=== PATIENT | female | born 1930 | race Caucasian/White ===

== ENCOUNTER 2016-10-09 06:14 | Inpatient (IN) | payer OTHER, MEDICAID ==
--- NOTE | 2016-10-09 07:04 | EDPHY ---
H & P Stated Complaint: dizzy/fall Time Seen by Provider: 10/09/16 06:16 HPI/ROS: Chief complaint: Fall, right shoulder pain HPI: 86-year-old female states she got out of bed at 5 o'clock this morning. She stood up beside her bed and felt dizzy. She states that she feels this way nearly every morning. She then tried to take a step forward and lost her balance and fell backwards flat onto her back. She did hit her head but denies loss of consciousness. She is complaining of pain in her right shoulder. No numbness or tingling. She does not take any blood thinning medications. No chest pain. No abdominal pain. No pain in her legs or hips. Patient does wear a fentanyl patch. EMS took this off during transport. ROS: 10 point Review of Systems is negative except as noted in the HPI. Past medical history: Chronic back pain status post spine and neck surgery, on fentanyl patch Depression Medications: Flexeril Trazodone Cymbalta Fentanyl Ranitidine Allergies: No known drug allergies Physical exam: Gen: Awake, Alert, uncomfortable appearing HEENT: Atraumatic Nose: no rhinorrhea Eyes: PERRLA, EOMI Mouth: Moist mucosa Neck: Supple, no JVD Chest: nontender, lungs clear to auscultation Heart: S1, S2 normal, no murmur Abd: Soft, non-tender, no guarding Back: no CVA tenderness, no midline tenderness Ext: no edema, she has tenderness over the right humeral head. There is swelling. Decreased range of motion secondary to pain. Sensations intact in the radial, median, and ulnar nerve distribution. She has 2+ capillary refill. Left arm is atraumatic. She has no lower extremity tenderness. She has full range of motion of bilateral lower extremities without pain. Skin: no rash Neuro: CN II-XII intact, Sensation grossly intact, Strength 5/5 in bilateral upper and lower extremities - Personal History Current Tetanus/Diphtheria Vaccine: Unsure Current Tetanus Diphtheria and Acellular Pertussis (TDAP): Unsure - Medical/Surgical History Hx Asthma: No Hx Chronic Respiratory Disease: No Hx Diabetes: No Hx Cardiac Disease: Yes Hx Renal Disease: No Hx Cirrhosis: No Hx Alcoholism: No Hx HIV/AIDS: No Hx Splenectomy or Spleen Trauma: No Other PMH: Stent, HTN, Skin cancer, Pacemaker, colectomy, Back surgery, Chronic back pain - Social History Smoking Status: Never smoked Constitutional: Initial Vital Signs Temperature (C) 36.7 C 10/09/16 06:38 Heart Rate 76 10/09/16 06:38 Respiratory Rate 15 10/09/16 06:38 Blood Pressure 164/96 H 10/09/16 06:38 O2 Sat (%) 95 10/09/16 06:38 O2 Delivery Mode Room Air Allergies/Adverse Reactions: No Known Allergies Allergy (Verified 10/09/16 06:44) Home Medications: Medication Instructions Recorded Amoxicillin 500 mg PO 10/09/16 Bisoprolol Fumarate [Zebeta (*)] 10/09/16 CYCLOBENZAPRINE HCL [Flexeril] 10/09/16 DULoxetine [Cymbalta] 10/09/16 Ranitidine HCl 150 mg PO 10/09/16 fentanYL [Fentanyl] 1 each TD 10/09/16 traZODone [traZODONE 50MG (*)] 10/09/16 Medical Decision Making - Diagnostics Imaging: CT head: Negative for acute injury per Dr. Jose Jaramillo. Right shoulder x-ray: There is a right humeral head fracture with minimal displacement. ED Course/Re-evaluation: 86-year-old female status post mechanical fall with a right shoulder fracture. Patient normally walks with a cane. She is very frail. She lives independently. I do not believe she is safe to go home at this time. I have discussed with Dr. Springer, hospitalist. She will admit to her service for further care. I have also discussed with orthopedist who will happily consult on the patient in the hospital. Patient has been placed in a shoulder immobilizer. There are no other obvious signs of injuries. Blood work is still pending which hospitalist is happy to follow up. - Data Points Laboratory Results: Laboratory Results 10/09/16 07:00 10/09/16 10/09/16 07:00 07:00 WBC 6.86 10^3/uL 10^3/uL (3.80-9.50) RBC 4.16 10^6/uL L 10^6/uL (4.18-5.33) Hgb 13.0 g/dL g/dL (12.6-16.3) Hct 38.2 % % (38.0-47.0) MCV 91.8 fL fL (81.5-99.8) MCH 31.3 pg pg (27.9-34.1) MCHC 34.0 g/dL g/dL (32.4-36.7) RDW 12.6 % % (11.5-15.2) Plt Count 161 10^3/uL 10^3/uL (150-400) MPV 10.2 fL fL (8.7-11.7) Neut % (Auto) 57.3 % % (39.3-74.2) Lymph % (Auto) 25.2 % % (15.0-45.0) Cole % (Auto) 14.3 % H % (4.5-13.0) Eos % (Auto) 2.0 % % (0.6-7.6) Baso % (Auto) 0.9 % % (0.3-1.7) Nucleat RBC Rel Count 0.0 % % (0.0-0.2) Absolute Neuts (auto) 3.93 10^3/uL 10^3/uL (1.70-6.50) Absolute Lymphs (auto) 1.73 10^3/uL 10^3/uL (1.00-3.00) Absolute Monos (auto) 0.98 10^3/uL H 10^3/uL (0.30-0.80) Absolute Eos (auto) 0.14 10^3/uL 10^3/uL (0.03-0.40) Absolute Basos (auto) 0.06 10^3/uL 10^3/uL (0.02-0.10) Absolute Nucleated RBC 0.00 10^3/uL 10^3/uL (0-0.01) Immature Gran % 0.3 % % (0.0-1.1) Immature Gran # 0.02 10^3/uL 10^3/uL (0.00-0.10) Sodium Pending Potassium Pending Chloride Pending Carbon Dioxide Pending Anion Gap Pending BUN Pending Creatinine Pending Estimated GFR Pending Glucose Pending Calcium Pending Departure - Departure Disposition: [facility] Inpatient Acute Clinical Impression: Humerus head fracture Condition: Fair Referrals: Patient,NotPresent [Primary Care Provider] - As per Instructions
[2016-10-09 07:06] LABS: % IMMATURE GRANULYOCYTES 0.3 % (0.0-1.1); ABSOLUTE IMMATURE GRANULOCYTES 0.02 10^3/uL (0.00-0.10); ADD DIFF? NO; ADD MORPH? NO; ADD SCAN? NO; ATYPICAL LYMPHOCYTE FLAG 10 (0-99); FRAGMENT RBC FLAG 0 (0-99); HEMATOCRIT 38.2 % (38.0-47.0); LEFT SHIFT FLG 0 (0-99); LIPEMIA HEMOLYSIS FLAG 90 (0-99); MEAN CELL HEMOGLOBIN 31.3 pg (27.9-34.1); MEAN CELL VOLUME 91.8 fL (81.5-99.8); MEAN PLATELET VOLUME 10.2 fL (8.7-11.7); PLATELET CLUMPS FLAG 0 (0-99); PLATELET COUNT 161 10^3/uL (150-400); RED BLOOD CELL COUNT 4.16 10^6/uL (4.18-5.33); RED CELL DISTRIBUTION WIDTH 12.6 % (11.5-15.2)
[2016-10-09 07:30] LABS: ANION GAP 8 mEq/L (8-16); CALCIUM 9.6 mg/dL (8.5-10.4); CARBON DIOXIDE 28 mEq/l (22-31); CHLORIDE 104 mEq/L (97-110); CREATININE 1.1 mg/dL (0.6-1.0); GLOMERULAR FILTRATION RATE 47; GLUCOSE 95 mg/dL (70-100); SODIUM 140 mEq/L (134-144)
[2016-10-09] MEDS ORDERED: ONDANSETRON 4 MG/2 ML VIAL IVP PRN (07:39)
[2016-10-09] MEDS ORDERED: ONDANSETRON DISINTEGRATING 4 MG TAB PO PRN (07:39)
--- NOTE | 2016-10-09 07:58 | PDGENHP ---
History and Physical - Chief Complaint fall - History of Present Illness Patient is an 86/F with history of CAD, PPM, reports multiple TIA, HTN, chronic back pain who presents to the ED after a fall with significant R shoulder pain. Patient states she had woken up at about 530 this morning, got out of bed and felt dizzy upon standing. She tried to take a few steps forward when she felt herself falling back. She reached out her R arm to try to catch herself, however , could not stop herself from falling and landed on her R arm. She also reports hitting her head on the ground, but not directly. She denies LOC, but was in significant amount of acute pain in her R shoulder. She denies any associated focal weakness, chest pain, palpitations, shortness of breath. Of note, patient was recently initiated on antibiotics for a UTI 2 days ago. She states she was feeling lower abdominal cramping and fullness, was diagnosed with a UTI and started the antibiotics (unable to remember name). She reports her urinary symptoms seemed to have improved. She denies any fever, chills. On arrival to the ED, patient was afebrile and hemodynamically stable. CBC was wnl, BMP showed mild elevation in BUn/Cr. X-ray of R shoulder revealed acute humeral head fracture. CT head was negative for any acute intracranial abnormality. History Information - Allergies/Home Medication List Allergies/Adverse Reactions: No Known Allergies Allergy (Verified 10/09/16 06:44) Home Medications: Amoxicillin 500 mg PO 10/09/16 [Last Taken Unknown] Bisoprolol Fumarate [Zebeta (*)] 10/09/16 [Last Taken Unknown] CYCLOBENZAPRINE HCL [Flexeril] 10/09/16 [Last Taken Unknown] DULoxetine [Cymbalta] 10/09/16 [Last Taken Unknown] Ranitidine HCl 150 mg PO 10/09/16 [Last Taken Unknown] fentanYL [Fentanyl] 1 each TD 10/09/16 [Last Taken Unknown] traZODone [traZODONE 50MG (*)] 10/09/16 [Last Taken Unknown] I have personally reviewed and updated: family history, medical history, social history, surgical history - Past Medical History Additional medical history: CAD. PPM. TIAs. chronic back pain. bowel resection for unclear reason - Surgical History Additional surgical history: tonsillectomy. breast biopsies. hysterectomy. bowel resection with colostomy. multiple back surgeries. Mohs procedure on nose - Family History Positive for: non-pertinent - Social History Smoking Status: Former smoker (quit smoking 30 yrs ago, smoked x 30 years) Alcohol Use: None Drug Use: None Additional social history: Patient lives with her son, walks independently. Review of Systems ROS: 10pt was reviewed & negative except for what was stated in HPI & below Physical Exam Temp Pulse Resp BP Pulse Ox 36.7 C 76 15 164/96 H 95 10/09/16 06:51 10/09/16 06:51 10/09/16 06:51 10/09/16 06:51 10/09/16 06:51 Constitutional: no apparent distress, appears nourished, not in pain Eyes: PERRL, anicteric sclera, EOMI Ears, Nose, Mouth, Throat: hearing normal, ears appear normal, no oral mucosal ulcers, dry mucous membranes Cardiovascular: regular rate and rhythym, no murmur, rub, or gallop, pulses symmetric bilaterally, No JVD, No edema Peripheral Pulses: 2+: dorsalis-pedis (R), dorsalis-pedis (L) Respiratory: no respiratory distress, no rales or rhonchi, clear to auscultation Gastrointestinal: normoactive bowel sounds, soft, non-tender abdomen, no palpable masses, other (colostomy in place in LLQ, draining normal stool), No tenderness, No guarding, No rebound, No distension Genitourinary: no bladder fullness, no bladder tenderness Skin: warm, normal color, no rashes or abrasions, no fluctuance, no induration, No mottled Musculoskeletal: other (R shoulder in sling immobilizer, with significant tenderness; neurovascularly intact) Neurologic: AAOx3, sensation intact bilaterally, CN II-XII Intact, No weakness, No numbness, No facial droop Psychiatric: interacting appropriately, not anxious, not encephalopathic, thought process linear Lab Data & Imaging Review 10/09/16 07:00 10/09/16 07:00 WBC 6.86 10^3/uL (3.80-9.50) 10/09/16 07:00 RBC 4.16 10^6/uL (4.18-5.33) L 10/09/16 07:00 Hgb 13.0 g/dL (12.6-16.3) 10/09/16 07:00 Hct 38.2 % (38.0-47.0) 10/09/16 07:00 MCV 91.8 fL (81.5-99.8) 10/09/16 07:00 MCH 31.3 pg (27.9-34.1) 10/09/16 07:00 MCHC 34.0 g/dL (32.4-36.7) 10/09/16 07:00 RDW 12.6 % (11.5-15.2) 10/09/16 07:00 Plt Count 161 10^3/uL (150-400) 10/09/16 07:00 MPV 10.2 fL (8.7-11.7) 10/09/16 07:00 Neut % (Auto) 57.3 % (39.3-74.2) 10/09/16 07:00 Lymph % (Auto) 25.2 % (15.0-45.0) 10/09/16 07:00 [place] % (Auto) 14.3 % (4.5-13.0) H 10/09/16 07:00 Eos % (Auto) 2.0 % (0.6-7.6) 10/09/16 07:00 Baso % (Auto) 0.9 % (0.3-1.7) 10/09/16 07:00 Nucleat RBC Rel Count 0.0 % (0.0-0.2) 10/09/16 07:00 Absolute Neuts (auto) 3.93 10^3/uL (1.70-6.50) 10/09/16 07:00 Absolute Lymphs (auto) 1.73 10^3/uL (1.00-3.00) 10/09/16 07:00 Absolute Monos (auto) 0.98 10^3/uL (0.30-0.80) H 10/09/16 07:00 Absolute Eos (auto) 0.14 10^3/uL (0.03-0.40) 10/09/16 07:00 Absolute Basos (auto) 0.06 10^3/uL (0.02-0.10) 10/09/16 07:00 Absolute Nucleated RBC 0.00 10^3/uL (0-0.01) 10/09/16 07:00 Immature Gran % 0.3 % (0.0-1.1) 10/09/16 07:00 Immature Gran # 0.02 10^3/uL (0.00-0.10) 10/09/16 07:00 Sodium 140 mEq/L (134-144) 10/09/16 07:00 Potassium 4.0 mEq/L (3.5-5.2) 10/09/16 07:00 Chloride 104 mEq/L (97-110) 10/09/16 07:00 Carbon Dioxide 28 mEq/l (22-31) 10/09/16 07:00 Anion Gap 8 mEq/L (8-16) 10/09/16 07:00 BUN 24 mg/dL (7-23) H 10/09/16 07:00 Creatinine 1.1 mg/dL (0.6-1.0) H 10/09/16 07:00 Estimated GFR 47 10/09/16 07:00 Glucose 95 mg/dL (70-100) 10/09/16 07:00 Calcium 9.6 mg/dL (8.5-10.4) 10/09/16 07:00 Visualized and Interpreted imaging results: Yes Interpretation: CT head: no acute abnormalities. X-ray shoulder: acute R humeral head fracture Assessment & Plan Assessment: Patient is an 86/F with CAD, h/o TIA, PPM in place who presents to the ED after a mechanical fall. ED w/u reveals mild dehydration and acute R humeral head fracture. Plan: # acute R humerus fracture Placed in sling, ortho called by ED, evaluation pending. Will cont pain control and f/u ortho recommendations regarding need for surgical intervention. # fall Sounds as if patient was orthostatic upon standing from lying position and patient also appears dehydrated on exam and based on labs. Will check TTE, interrogate PPM, place on IV fluid hydration and obtain PT consult. Low suspicion for ACS, but will also check EKG and troponin. # recently diagnosed UTI Once antibiotic is confirmed can restart the antibiotic. Will also check UA. No clinical signs of infection presently. # dispo: admit to inpatient service for > 2 MN stay # gen: NPO DVT ppx: SCDs DNR, as expressed by patient on admission
--- NOTE | 2016-10-09 08:25 | CPEKG ---
Heart Rate: 76 RR Interval: 789 P-R Interval: 176 QRSD Interval: 76 QT Interval: 416 QTC Interval: 468 P [employer]: 46 QRS [employer]: 34 T Wave [employer]: 56 EKG Severity - NORMAL ECG - EKG Impression: SINUS RHYTHM Electronically Signed By: Dejan Tong 10-Oct-2016 14:24:03
[2016-10-09] MEDS ORDERED: fentaNYL 100 MCG/2 ML INJ ONE (09:44)
[2016-10-09] MEDS ORDERED: fentaNYL 100 MCG/2 ML INJ IVP ONE (09:53)
[2016-10-09] MEDS: fentaNYL 50 MCG PATCH TD SCH (11:12)
--- NOTE | 2016-10-09 11:37 | ECHO ---
[id number] + + [address] : : [place] [address] : : [phone] + + Adult Echocardiographic Report + -----+ :Name: GAURANG ARENASAdama Date: 10/09/2016 10:43 AM : : Hospital Admission Number: [id number] Location : 6: :: 1930 Gender: Female Height: 59 in : :Age: 86 yrs Race: WH Weight: 89 lb : :Reason For Study: Eval LV Fx : : BSA: 1.3 meters2 : :History: Fall, Fractured Shoulder, Dizziness, Pacemaker : + -----+ MMode/2D Measurements \T\ Calculations IVSd: 0.86 cm LVIDd: 3.6 cm FS: 46.0 % MV Diam: 3.1 cm LVPWd: 0.94 cm LVIDs: 1.9 cm EDV(Teich): 54.1 ml ESV(Teich): 11.8 ml EF(Teich): 78.2 % Ao root diam: 2.8 cm LVOT diam: 1.9 cm ACS: 1.4 cm LVOT area: 2.8 cm2 LA dimension: 3.3 cm Normal Measurement Values: + + :LVIDd (3.5-5.7cm) IVSd (0.6-1.1cm) LVPWd (0.6-1.1cm) Aortic Root (2.0-3.7cm)Left Atrium (1.5-4.0cm): :LV Vol(d) (76-115ml) LV Vol(s) (29-48ml) Ejec Fraction (50-65%)PV Romaine (0.6- 1.2m/s) TV Romaine (0.4-1.0m/s) : :MV E Romaine (0.8-1.0m/s)MV A Romaine (0.3-1.0m/s)LVOT Romaine (0.7-1.2m/s) Asc Ao Romaine ( 0.9-1.8m/s) : + + Doppler Measurements \T\ Calculations MV E max romaine: MV V2 max: Ao V2 max: AI max romaine: 77.5 cm/sec 116.0 cm/sec 141.0 cm/sec 423.0 cm/sec MV A max romaine: MV max P.4 mmHg Ao max PG: AI max P.0 cm/sec MV V2 mean: 8.0 mmHg 71.6 mmHg MV E/A: 0.66 75.5 cm/sec Ao mean PG: AI dec slope: MV mean P.0 mmHg 241.0 cm/sec2 3.0 mmHg Ao V2 mean: AI P1/2t: MV V2 VTI: 27.3 cm 98.5 cm/sec 514.1 msec MV area (1 diam): Ao V2 VTI: 7.5 cm2 32.1 cm CATHRYN(I,D): MVA(VTI): 24.6 cm2 20.9 cm2 MV Flow area CATHRYN(V,D): (1diam): 7.5 cm2 12.4 cm2 LV V1 max: MR max romaine: MR(RF 1 diam): SV(MV 1 diam): 619.0 cm/sec 604.0 cm/sec 8.8 % 206.1 ml LV V1 max PG: MR max PG: SI(MV 1 diam): 153.3 mmHg 145.9 mmHg 157.6 ml/m2 LV V1 mean PG: SV(LVOT): 672.0 ml 113.0 mmHg LV V1 mean: 509.0 cm/sec LV V1 VTI: 237.0 cm TR max romaine: RF(MV,Ao)(1 diam): 286.0 cm/sec 0.04 TR max PG: RF(MV,LVOT)(1diam): 32.7 mmHg -2.3 RAP systole: 5.0 mmHg RVSP(TR): 37.7 mmHg Left Ventricle The left ventricle is normal in size. There is normal left ventricular wall thickness. The left ventricular ejection fraction is normal. There is Doppler evidence for diastolic dysfunction. Ejection Fraction = 78%. The left ventricular wall motion is normal. Right Ventricle There is a pacemaker lead in the right ventricle. The right ventricle is normal in size and function. Atria The left atrial size is normal. Right atrial size is normal. Mitral Valve The mitral valve is normal. There is mild to moderate mitral regurgitation. Tricuspid Valve There is mild tricuspid regurgitation. Right ventricular systolic pressure is normal. Aortic Valve Mild Aortic Valve Calcification. The aortic valve is trileaflet. There is no aortic stenosis. Moderate aortic regurgitation. Pulmonic Valve The pulmonic valve is normal in structure and function. There is no pulmonic valvular regurgitation. Great Vessels The aortic root is normal size. Pericardium/Pleural There is no pericardial effusion. Conclusion A complete two-dimensional transthoracic echocardiogram was performed (2D, M-mode, Doppler and color flow Doppler). (1) Left ventricular systolic ejection fraction was normal (>75%) - normal wall motion (2) No left ventricular hypertrophy (3) Diastolic dysfunction was present (4) Normal right ventricular size and function - pacer lead to the right ventricular chamber (5) Normal atrial dimensions (6) Mild to moderate mitral regurgitation (7) Trileaflet aortic valve with mild sclerosis, no stenosis, and moderate insufficiency (8) Mild tricuspid regurgitation - RVSP was estimated to be 35-40 mm Hg (9) Poor visualization of the pulmonic valve without appreciable insufficiency noted (by doppler) (10) No comparison echocardiograms Final Reading Physician: Hanna Morales signed on 10/09/2016 11:35 AM Ordering Physician: Chen Springer Performed By: Tho Ceja, RDCS
[2016-10-09] MEDS: NS 1,000 ML IV SCH (14:06)
[2016-10-09] MEDS: AMOX/CLAVULANATE 500/125 MG TAB PO SCH ×2 (14:06→20:23)
[2016-10-09 16:57] LABS: COLOR YELLOW; LEUKOCYTE ESTERASE,URINE NEGATIVE (NEGATIVE); NITRITE,URINE NEGATIVE (NEGATIVE)
[2016-10-09] MEDS: CYCLOBENZAPRINE 10 MG TAB PO SCH (20:22)
[2016-10-09] MEDS: oxyCODONE IR 5 MG TAB PO PRN (20:22)
[2016-10-09] MEDS: BISOPROLOL FUMARATE 5 MG TAB PO SCH (20:22)
[2016-10-09] MEDS: DOCUSATE SODIUM 100 MG CAP PO SCH (20:22)
[2016-10-09] MEDS: traZODone 50 MG TAB PO SCH (20:22)
[2016-10-09] MEDS: ATORVASTATIN CALCIUM 20 MG TAB PO SCH (20:23)
--- NOTE | 2016-10-09 20:39 | PDCONSULT ---
[employer] Waiter Note: paxton is a pleasant 86 yo f, biba today on 10/09/16, patient states she awoke this morning around 5, got up out of bed, took a few steps, and felt dizzy ( which she reports happens to her fairly regularly) and she wanted to sit down, but she was not close to a bed or chair and so she fell to the ground, patient tried to catch her self, but ended up landing on her right arm and falling down and hitting her head, patient reports she did not loose consciousness and remembers everything. patient states pain was immediate 10+/10, sharp stabbing non-radiating pain. immediately after her fall patients son found her and called the ambulance as he was afraid to pick her up. patient was then brought to [place] [facility] ED where it was found she had a humerus fracture. 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, multiple uti's psh: partial bowel resection w/ colostomy, tonsilectomy, angle-bso, cardiac stents , pace maker placement, bladder mesh removal x2, cervical spinal fusion, MOHs skin cancer removal, breast biopsies x2 allergies: nkda home medications Amox Tr/K Clav (Augmentin) [Augmentin 500/125 MG TAB (*)] 1 each PO BID [Last Taken 10/08/16] Aspirin [Aspirin 81mg (*)] 81 mg PO DAILY 10/09/16 [Last Taken 10/08/16] Atorvastatin Calcium [Lipitor 20 mg (*)] 20 mg PO HS 10/09/16 [Last Taken ] Bisoprolol Fumarate [Zebeta (*)] 2.5 mg PO HS 10/09/16 [Last Taken 10/08/16] Calcium Carbonate [Oyster Shell Calcium 500 mg (*)] 500 mg PO DAILY 10/09/16 [ Last Taken 10/08/16] Cyclobenzaprine [Flexeril 10 MG (*)] 10 mg PO HS 10/09/16 [Last Taken Unknown] DULoxetine [Cymbalta 30 MG (*)] 30 mg PO DAILY 10/09/16 [Last Taken 10/08/16] Dexlansoprazole [Dexilant] 30 mg PO DAILYAC 10/09/16 [Last Taken 10/06/16] Docusate Sodium [Colace 100 MG (*)] 100 mg PO BID 10/09/16 [Last Taken 10/08/16] Folic Acid [Folic Acid 1 MG (*)] 1 mg PO DAILY 10/09/16 [Last Taken 10/08/16] Herbals/Supplements -Info Only 1 ea PO DAILY 10/09/16 [Last Taken Unknown] Multivitamins W-Minerals [Thera M Plus Tablet (*)] 1 each PO DAILY 10/09/16 [ Last Taken 10/08/16] Ranitidine HCl 150 mg PO BID 10/09/16 [Last Taken Unknown] fentaNYL [Duragesic 50 MCG Patch (*)] 50 mcg TD Q72H 10/09/16 [Last Taken ] traZODone [traZODONE 50MG (*)] 50 mg PO HS 10/09/16 [Last Taken 10/08/16] family history: non pertinent social history: former smoker (smoked for 30 years, quit 30 years ago) cbc and chem panel for 10/09/16 reviewed WBC 6.86 10^3/uL (3.80-9.50) 10/09/16 07:00 RBC 4.16 10^6/uL (4.18-5.33) L 10/09/16 07:00 Hgb 13.0 g/dL (12.6-16.3) 10/09/16 07:00 Hct 38.2 % (38.0-47.0) 10/09/16 07:00 MCV 91.8 fL (81.5-99.8) 10/09/16 07:00 MCH 31.3 pg (27.9-34.1) 10/09/16 07:00 MCHC 34.0 g/dL (32.4-36.7) 10/09/16 07:00 RDW 12.6 % (11.5-15.2) 10/09/16 07:00 Plt Count 161 10^3/uL (150-400) 10/09/16 07:00 MPV 10.2 fL (8.7-11.7) 10/09/16 07:00 Neut % (Auto) 57.3 % (39.3-74.2) 10/09/16 07:00 Lymph % (Auto) 25.2 % (15.0-45.0) 10/09/16 07:00 [place] % (Auto) 14.3 % (4.5-13.0) H 10/09/16 07:00 Eos % (Auto) 2.0 % (0.6-7.6) 10/09/16 07:00 Baso % (Auto) 0.9 % (0.3-1.7) 10/09/16 07:00 Nucleat RBC Rel Count 0.0 % (0.0-0.2) 10/09/16 07:00 Absolute Neuts (auto) 3.93 10^3/uL (1.70-6.50) 10/09/16 07:00 Absolute Lymphs (auto) 1.73 10^3/uL (1.00-3.00) 10/09/16 07:00 Absolute Monos (auto) 0.98 10^3/uL (0.30-0.80) H 10/09/16 07:00 Absolute Eos (auto) 0.14 10^3/uL (0.03-0.40) 10/09/16 07:00 Absolute Basos (auto) 0.06 10^3/uL (0.02-0.10) 10/09/16 07:00 Absolute Nucleated RBC 0.00 10^3/uL (0-0.01) 10/09/16 07:00 Immature Gran % 0.3 % (0.0-1.1) 10/09/16 07:00 Immature Gran # 0.02 10^3/uL (0.00-0.10) 10/09/16 07:00 Sodium 140 mEq/L (134-144) 10/09/16 07:00 Potassium 4.0 mEq/L (3.5-5.2) 10/09/16 07:00 Chloride 104 mEq/L (97-110) 10/09/16 07:00 Carbon Dioxide 28 mEq/l (22-31) 10/09/16 07:00 Anion Gap 8 mEq/L (8-16) 10/09/16 07:00 BUN 24 mg/dL (7-23) H 10/09/16 07:00 Creatinine 1.1 mg/dL (0.6-1.0) H 10/09/16 07:00 Estimated GFR 47 10/09/16 07:00 Glucose 95 mg/dL (70-100) 10/09/16 07:00 Calcium 9.6 mg/dL (8.5-10.4) 10/09/16 07:00 Troponin I 0.019 ng/mL (0-0.034) 10/09/16 07:00 Urine Color YELLOW 10/09/16 16:27 Urine Appearance HAZY 10/09/16 16:27 Urine pH 7.0 (5.0-7.5) 10/09/16 16:27 Ur Specific Bonnie 1.014 (1.002-1.030) 10/09/16 16:27 Urine Protein NEGATIVE (NEGATIVE) 10/09/16 16:27 Urine Ketones NEGATIVE (NEGATIVE) 10/09/16 16:27 Urine Blood NEGATIVE (NEGATIVE) 10/09/16 16:27 Urine Nitrate NEGATIVE (NEGATIVE) 10/09/16 16:27 Urine Bilirubin NEGATIVE (NEGATIVE) 10/09/16 16:27 Urine Urobilinogen NEGATIVE EU (0.2-1.0) 10/09/16 16:27 Ur Leukocyte Esterase NEGATIVE (NEGATIVE) 10/09/16 16:27 Urine Glucose NEGATIVE (NEGATIVE) 10/09/16 16:27 PE: pleasent 86 yo female appearing stated age, in no acute distress RUE: right arm in sling, no erythema/edema/ecchymosis, exquisitely ttp over humeral head and proximal humeral shaft, rom: passive rom of elbow 80-110 limited 2ndry to pain, full wrist active/passive, full digital active/passive, radial/ulnar 2+, nvid w/ brisk cap refill Visualized and Interpreted imaging results: Yes Interpretation: CT head: no acute abnormalities. X-ray shoulder: acute R humeral head fracture a/p 86/F with CAD, h/o TIA, PPM, presenting to ED s/p fall w/ right humerus fracture -RUE: nnon-weight bearing x6 weeks, continue sling use for 6 weeks, no surgical intervention at this time as patient is high risk surgical candidate -pain management per primary team, consider adding in tylenol 1000mg q8h for additional pain relief -proph: incentive spirometry, cpm's b/l, patient encouraged to maintain her wrist/digital rom even while in sling -may dc npo order as patient will not be getting surgery today -no further orthopedic intervention at this time, patient should follow up with alejandra hughes pa-c in 2 weeks from date of injury -all of this was discussed with patients son ilia who is power of radiation control technician and he agreed with the plan put forth case discussed w/ dr. balderrama
[2016-10-09] MEDS ORDERED: NON-FORMULARY NEW DRUG (Ranitidine Hcl [Ranitidine Hcl] 150 MG) PO SCH (21:00)
[2016-10-10] MEDS: NS 1,000 ML IV SCH (03:31)
[2016-10-10] MEDS: oxyCODONE IR 5 MG TAB PO PRN ×4 (03:33→19:42)
[2016-10-10] MEDS ORDERED: DEXLANSOPRAZOLE 30 MG PO SCH (07:30)
[2016-10-10] MEDS: ACETAMINOPHEN 500 MG TAB PO PRN ×3 (08:31→20:54)
[2016-10-10] MEDS: AMOX/CLAVULANATE 500/125 MG TAB PO SCH ×2 (08:40→19:44)
[2016-10-10] MEDS: MULTIVITAMINS W-MINERALS 1 EACH TAB PO SCH (08:40)
[2016-10-10] MEDS: FAMOTIDINE 20 MG TAB PO SCH (08:40)
[2016-10-10] MEDS: DULoxetine 30 MG CAP PO SCH (08:40)
[2016-10-10] MEDS: FOLIC ACID 1 MG TAB PO SCH (08:40)
[2016-10-10] MEDS: CALCIUM CARBONATE 500 MG TAB PO SCH (08:41)
[2016-10-10] MEDS: DOCUSATE SODIUM 100 MG CAP PO SCH (08:41)
[2016-10-10] MEDS: ASPIRIN 81 MG CHEWABLE TAB PO SCH (08:41)
[2016-10-10] MEDS ORDERED: Herbals/Supplements -Info Only PO SCH (09:00)
[2016-10-10] MEDS ORDERED: fentaNYL 50 MCG PATCH TD SCH (09:00)
--- NOTE | 2016-10-10 10:14 | GCON ---
[f rep st] CONSULTATION CONSULTATION (APPROVAL OF PA NOTE) REASON FOR CONSULTATION: Right shoulder pain. HISTORY RELATIVE TO THE CONSULTATION: The patient sustained a fall, landing on her right arm. She noted right shoulder pain. Her radiographs revealed a minimally displaced surgical neck of the tyler madan fracture with mild extension of the head. I reviewed her x-rays and discussed her case with my PA, Toby Copeland. I agree with the assessment and plan. Nonoperative treatment course was recom mended. She was placed in a sling. Follow up will be in 2 weeks. /[id number]/MODL
[2016-10-10] MEDS: DEXLANSOPRAZOLE 30 MG PO SCH (10:38)
--- NOTE | 2016-10-10 14:25 | HOSPPROG ---
Hospitalist Progress Note Assessment/Plan: Patient is an 86/F with CAD, h/o TIA, PPM in place who presents to the ED after a mechanical fall. ED w/u reveals mild dehydration and acute R humeral head fracture. This is my first encounter with the patient. Chart reviewed. Plan: # acute R humerus fracture Placed in sling, appreciate ortho consult, cont conservative care. Will cont pain control # fall Sounds as if patient was orthostatic upon standing from lying position and patient also appears dehydrated on exam and based on labs. ECHO stable, interrogate PPM, hydrated and obtain PT consult. Low suspicion for ACS, EKG and troponin stable. # recently diagnosed UTI On macrobid. UA looks clean. No clinical signs of infection presently. #Hx of ostomy cont wound care # dispo: admit to inpatient service for > 2 [place] stay will need SNF # gen: DVT ppx: SCDs DNR, as expressed by patient on admission Subjective: Up in the chair. Still having some significant right arm pain. Feels a bit tired and weak today. Objective: Vital Signs Temp Pulse Resp BP Pulse Ox 36.7 C 70 20 142/79 H 96 10/10/16 11:44 10/10/16 11:44 10/10/16 11:44 10/10/16 11:44 10/10/16 11:44 10/09/16 10/10/16 10/11/16 05:59 05:59 05:59 Intake Total 1150 Output Total 600 Balance 550 - Physical Exam Constitutional: no apparent distress, appears nourished, uncomfortable Eyes: PERRL, anicteric sclera, EOMI Ears, Nose, Mouth, Throat: moist mucous membranes, hearing normal, ears appear normal Cardiovascular: No JVD, No tachycardia, No bradycardia Respiratory: no respiratory distress, no rales or rhonchi, reduced air movement Gastrointestinal: No tenderness, No ascites, No guarding Skin: warm, normal color, No erythema Musculoskeletal: joint tenderness, pain with ROM, generalized weakness Neurologic: AAOx3 Psychiatric: interacting appropriately, not anxious, not encephalopathic ICD10 Worksheet Patient Problems: Problems Problem Status Onset Humerus head fracture Acute
[2016-10-10] MEDS: ATORVASTATIN CALCIUM 20 MG TAB PO SCH (19:45)
[2016-10-10] MEDS: CYCLOBENZAPRINE 10 MG TAB PO SCH (19:46)
[2016-10-10] MEDS: BISOPROLOL FUMARATE 5 MG TAB PO SCH (19:47)
[2016-10-10] MEDS: traZODone 50 MG TAB PO SCH (20:54)
[2016-10-11] MEDS: DOCUSATE SODIUM 100 MG CAP PO SCH ×3 (02:08→20:54)
[2016-10-11] MEDS: oxyCODONE IR 5 MG TAB PO PRN ×4 (05:03→20:53)
[2016-10-11] MEDS: ACETAMINOPHEN 500 MG TAB PO PRN (05:04)
[2016-10-11] MEDS: DEXLANSOPRAZOLE 30 MG PO SCH (07:52)
[2016-10-11] MEDS: ASPIRIN 81 MG CHEWABLE TAB PO SCH (10:17)
[2016-10-11] MEDS: AMOX/CLAVULANATE 500/125 MG TAB PO SCH ×2 (10:17→20:54)
[2016-10-11] MEDS: amLODIPine BESYLATE 5 MG TAB PO SCH (10:17)
[2016-10-11] MEDS: CALCIUM CARBONATE 500 MG TAB PO SCH (10:18)
[2016-10-11] MEDS: FOLIC ACID 1 MG TAB PO SCH (10:19)
[2016-10-11] MEDS: FAMOTIDINE 20 MG TAB PO SCH (10:19)
[2016-10-11] MEDS: DULoxetine 30 MG CAP PO SCH (10:19)
[2016-10-11] MEDS: MULTIVITAMINS W-MINERALS 1 EACH TAB PO SCH (10:20)
--- NOTE | 2016-10-11 11:27 | HOSPPROG ---
Hospitalist Progress Note Assessment/Plan: Patient is an 86/F with CAD, h/o TIA, PPM in place who presents to the ED after a mechanical fall. ED w/u reveals mild dehydration and acute R humeral head fracture. Plan: # acute R humerus fracture Placed in sling, appreciate ortho consult, cont conservative care. Will cont pain control # fall Sounds as if patient was orthostatic upon standing from lying position and patient also appears dehydrated on exam and based on labs. ECHO stable, interrogate PPM, hydrated and obtain PT consult. Low suspicion for ACS, EKG and troponin stable. # recently diagnosed UTI On macrobid. UA looks clean. No clinical signs of infection presently. Cont abx for another day or two. #Hx of ostomy cont wound care looks good #HTN started Norvasc 5mg monitor #NICK stable, follow up outpt #Chronic pain pt uses a fentanyl patch doesn't have it on restart here, watch for signs of confusion or complication # dispo: admit to inpatient service for > 2 [place] stay will need SNF should likely DC to SNF in am if stable D/W CM # gen: DVT ppx: SCDs DNR, as expressed by patient on admission Subjective: Up working with therapy. Feels better today. Less pain. In better spirits. Objective: Vital Signs Temp Pulse Resp BP Pulse Ox 36.7 C 78 16 148/78 H 95 10/11/16 08:00 10/11/16 08:00 10/11/16 08:00 10/11/16 10:17 10/11/16 08:00 10/10/16 10/11/16 10/12/16 05:59 05:59 05:59 Intake Total 1150 1000 Output Total 600 1325 Balance 550 -325 - Physical Exam Constitutional: no apparent distress, uncomfortable, cachectic Eyes: PERRL, anicteric sclera, EOMI Ears, Nose, Mouth, Throat: moist mucous membranes, hearing normal, ears appear normal Cardiovascular: No JVD, No tachycardia, No edema Respiratory: no respiratory distress, no rales or rhonchi, reduced air movement Gastrointestinal: No tenderness, No ascites, No guarding Skin: warm, normal color, No erythema Musculoskeletal: no joint effusions, pain with ROM, generalized weakness Neurologic: AAOx3 Psychiatric: interacting appropriately, not anxious, not encephalopathic, thought process linear ICD10 Worksheet Patient Problems: Problems Problem Status Onset Humerus head fracture Acute
[2016-10-11] MEDS: fentaNYL 50 MCG PATCH TD SCH (12:00)
[2016-10-11 20:17] VITALS: RESP 16
[2016-10-11] MEDS: ATORVASTATIN CALCIUM 20 MG TAB PO SCH (20:54)
[2016-10-11] MEDS: CYCLOBENZAPRINE 10 MG TAB PO SCH (20:54)
[2016-10-11] MEDS: BISOPROLOL FUMARATE 5 MG TAB PO SCH (20:54)
[2016-10-11] MEDS: traZODone 50 MG TAB PO SCH (20:54)
[2016-10-12] MEDS: oxyCODONE IR 5 MG TAB PO PRN ×2 (03:52→10:24)
[2016-10-12 07:30] VITALS: BP 126/69; PULSE 68; TEMP 97.4; O2SAT 96
--- NOTE | 2016-10-12 09:59 | PDIAF ---
- Diagnosis Diagnosis: HUMERAL FRACTURE Code Status: Do Not Resuscitate - Medication Management Discharge Medications: Medications to Continue on Transfer Aspirin [Aspirin 81mg (*)] 81 mg PO DAILY 10/09/16 [Last Taken 10/08/16] Atorvastatin Calcium [Lipitor 20 mg (*)] 20 mg PO HS 10/09/16 [Last Taken ] Bisoprolol Fumarate [Zebeta (*)] 2.5 mg PO HS 10/09/16 [Last Taken 10/08/16] Calcium Carbonate [Oyster Shell Calcium 500 mg (*)] 500 mg PO DAILY 10/09/16 [ Last Taken 10/08/16] Cyclobenzaprine [Flexeril 10 MG (*)] 10 mg PO HS 10/09/16 [Last Taken Unknown] DULoxetine [Cymbalta 30 MG (*)] 30 mg PO DAILY 10/09/16 [Last Taken 10/08/16] Dexlansoprazole [DEXILANT] 30 mg PO DAILYAC 10/09/16 [Last Taken 10/06/16] Docusate Sodium [Colace 100 MG (*)] 100 mg PO BID 10/09/16 [Last Taken 10/08/16] Folic Acid [Folic Acid 1 MG (*)] 1 mg PO DAILY 10/09/16 [Last Taken 10/08/16] Herbals/Supplements -Info Only 1 ea PO DAILY 10/09/16 [Last Taken Unknown] Multivitamins W-Minerals [Thera M Plus Tablet (*)] 1 each PO DAILY 10/09/16 [ Last Taken 10/08/16] Ranitidine HCl 150 mg PO BID 10/09/16 [Last Taken Unknown] fentaNYL [Duragesic 50 MCG Patch (*)] 50 mcg TD Q72H 10/09/16 [Last Taken ] traZODone [traZODONE 50MG (*)] 50 mg PO HS 10/09/16 [Last Taken 10/08/16] Acetaminophen [Tylenol ES 500 mg (*)] 500 - 1,000 mg PO Q6HRS PRN #0 tab [Last Taken Unknown] amLODIPine BESYLATE [Norvasc 5 mg (*)] 5 mg PO DAILY #0 tab 10/12/16 [Last Taken Unknown] oxyCODONE IR [Oxycodone Ir (*)] 5 - 10 mg PO Q3HRS PRN #0 tab 10/12/16 [Last Taken Unknown] Discharge Medications: Refer to the Discharge Home Medication list for PRN reason. - Orders Services needed: Registered Nurse, Physical Therapy, Occupational Therapy Diet Recommendation: no restrictions on diet Diet Texture: Regular Texture Diet - Follow Up Care Current Providers and Referrals: Patient,NotPresent [Unknown] - As per Instructions
[2016-10-12] MEDS: amLODIPine BESYLATE 5 MG TAB PO SCH (10:19)
[2016-10-12] MEDS: AMOX/CLAVULANATE 500/125 MG TAB PO SCH (10:19)
[2016-10-12] MEDS: DOCUSATE SODIUM 100 MG CAP PO SCH (10:19)
[2016-10-12] MEDS: CALCIUM CARBONATE 500 MG TAB PO SCH (10:19)
[2016-10-12] MEDS: MULTIVITAMINS W-MINERALS 1 EACH TAB PO SCH (10:19)
[2016-10-12] MEDS: FAMOTIDINE 20 MG TAB PO SCH (10:20)
[2016-10-12] MEDS: FOLIC ACID 1 MG TAB PO SCH (10:20)
[2016-10-12] MEDS: DULoxetine 30 MG CAP PO SCH (10:20)
[2016-10-12] MEDS: ASPIRIN 81 MG CHEWABLE TAB PO SCH (10:22)
[2016-10-12] MEDS: DEXLANSOPRAZOLE 30 MG PO SCH (10:33)
--- NOTE | 2016-10-12 20:02 | GDS ---
[f rep st] DISCHARGE SUMMARY DISCHARGE DIAGNOSES: Include: 1. Acute right humeral fracture. 2. Mechanical fall. 3. Recent urinary tract infection. 4. Hypertension. 5. Acute kidney injury. 6. Chronic pain. HISTORY OF PRESENT ILLNESS: An 86-year-old female, with a history of coronary disease and TIA, with a permanent pacemaker, who presents to the ED after a mechanical fall, and a right humeral head fra cture. For details of patient's initial presentation, please see the history and physical dated . CONSULTATIVE SERVICES: Orthopedic Surgery. PROCEDURES: On 10/09/2016, patient had a transthoracic echocardiogram that showed normal LV size an d function, diastolic dysfunction. HOSPITAL COURSE: By issue: 1. Acute right humeral head fracture. The patient was seen by Orthopedic Surgery. Conservative th erapy was recommended. The patient's arm was placed in a sling. She is being discharged to senior care rehab for rehabilitation. 2. Mechanical fall. The patient's vital signs remained normal during her hospital stay here. She did have her pacemaker interrogated, and an echocardiogram performed, which were normal. She will h ave ongoing PT/OT in the senior care facility. 3. Chronic pain. Patient was continued on her fentanyl patch, with p.r.n. pain medications for her right shoulder pain. 4. Recently diagnosed urinary tract infection. Patient completed her antibiotic course during this stay. DISCHARGE MEDICATIONS: Please reference medication reconciliation printed on 10/12/2016. PENDING STUDIES: At the time of this dictation are none. FOLLOWUP APPOINTMENTS: Include with Orthopedic Surgery in 2 weeks' time. The patient is being disc harged to senior care for rehabilitation and care. I spent greater than 30 minutes in the planning and coordination of this discharge. /[id number]/MODL
== END 2016-10-12 13:59 | DRG 563 ==
LOC: OBSVTOIN 07:39 → F3E 11:33
PROVIDERS: ADMIT Internal Medicine; ATTEND Internal Medicine
DX: S42.211A Unspecified displaced fracture of surgical neck of right humerus, initial encounter for closed fracture (principal); N17.9 Acute kidney failure, unspecified; I10 Essential (primary) hypertension; G89.29 Other chronic pain; Z87.440 Personal history of urinary (tract) infections; W18.39XA Other fall on same level, initial encounter; Z95.0 Presence of cardiac pacemaker; Z86.73 Personal history of transient ischemic attack (TIA), and cerebral infarction without residual deficits; Z95.5 Presence of coronary angioplasty implant and graft; Z85.820 Personal history of malignant melanoma of skin; Z87.891 Personal history of nicotine dependence; Y92.013 Bedroom of single-family (private) house as the place of occurrence of the external cause
CPT/HCPCS: 97116-GP; 97162-GP; 97166-GO; 97530-GO; 97530-GP; 97535-GO; G8978-GP-CJ; G8979-GP-CI; G8987-GO-CL; G8988-GO-CJ; J3010

== ENCOUNTER 2017-01-01 16:41 | Emergency (ER) | payer OTHER, MEDICAID ==
[2017-01-01 16:55] VITALS: PULSE 68
--- NOTE | 2017-01-01 17:41 | EDPHY ---
H & P Time Seen by Provider: 01/01/17 17:14 HPI/ROS: CHIEF COMPLAINT: Head injury HISTORY OF PRESENT ILLNESS: Patient is an 86-year-old female who presents to the emergency department after tripping while using her walker. She fell back and struck the right side of her head. She now has a hematoma. She did not lose consciousness. She has no headache or neck pain. She has had no nausea or vomiting. She denies focal deficits. Patient states she is here to "have it checked out." No preceding chest pain, dizziness, shortness of breath, lightheadedness. The patient had a fall in September 2016 and fractured her right humerus. REVIEW OF SYSTEMS: My complete review of systems is negative except as mentioned in the HPI. Past Medical/Surgical History: Includes mechanical falls, UTI, hypertension, acute kidney injury, chronic pain , skin cancer Past surgical history: Includes pacer placement, colectomy, back surgery Smoking Status: Former smoker Physical Exam: Vitals noted. 98/56 GENERAL: Well-appearing, in no acute distress, alert. HEAD: Small hematoma on the right scalp. EYES: PERRLA, EOMI, normal to inspection. ENT: Airway intact, no dental or oral injury, no malocclusion, no hemotympanum , normal external examination. NECK: The trachea is midline. There is no crepitus. The C-spine is nontender. NEXUS criteria is negative (no midline tenderness, no distracting injury, no altered mental status, no recent alcohol use, no focal neurologic deficit). RESPIRATORY: Clear to auscultation bilaterally, no rales, rhonchi or wheezing. There is no crepitus or palpable rib fractures. CVS: Regular rate and rhythm, no rubs, murmurs, or gallops. ABDOMEN: Soft, nontender, nondistended, normal bowel sounds, no bruising or abrasions. Pelvis: Stable. No tenderness palpation. Hips full range of motion. BACK: Normal to inspection, no spinal tenderness, no spinal step off, no notable bruising or abrasions. SKIN: Normal color, warm, dry. No pallor or diaphoresis. EXTREMITIES: Right upper extremity: Atraumatic. Decreased range of motion from recent humerus fracture. No visible signs of trauma. No tenderness palpation. Neurovascular intact distally. Left upper extremity: Atraumatic. No visible signs of trauma. No tenderness palpation. Neurovascular intact distally. Right lower extremity: Atraumatic. No visible signs of trauma. No tenderness palpation. Neurovascular intact distally. Left lower extremity: Atraumatic. No visible signs of trauma. No tenderness palpation. Neurovascular intact distally. Atraumatic, neurovascularly intact distally in all extremities, pelvis is stable , hips with full range of motion, moves all extremities freely. NEURO/PSYCH: Alert and oriented x 3, GCS 15, normal mood and affect, normal motor sensory exam. Constitutional: Initial Vital Signs Temperature (C) 36.6 C 01/01/17 16:52 Heart Rate 68 01/01/17 16:52 Respiratory Rate 17 01/01/17 16:52 Blood Pressure 98/56 L 01/01/17 16:52 O2 Sat (%) 93 01/01/17 16:52 O2 Delivery Mode Room Air Allergies/Adverse Reactions: No Known Allergies Allergy (Verified 01/01/17 16:51) Home Medications: Medication Instructions Recorded Aspirin [Aspirin 81mg (*)] 81 mg PO DAILY 10/09/16 Atorvastatin Calcium [Lipitor 20 20 mg PO HS 10/09/16 mg (*)] Bisoprolol Fumarate [Zebeta (*)] 2.5 mg PO HS 10/09/16 Calcium Carbonate [Oyster Shell 500 mg PO DAILY 10/09/16 Calcium 500 mg (*)] Cyclobenzaprine [Flexeril 10 MG 10 mg PO HS 10/09/16 (*)] DULoxetine [Cymbalta 30 MG (*)] 30 mg PO DAILY 10/09/16 Dexlansoprazole [DEXILANT] 30 mg PO DAILYAC 10/09/16 Docusate Sodium [Colace 100 MG (*)] 100 mg PO BID 10/09/16 Folic Acid [Folic Acid 1 MG (*)] 1 mg PO DAILY 10/09/16 Herbals/Supplements -Info Only 1 ea PO DAILY 10/09/16 Multivitamins W-Minerals [Thera M 1 each PO DAILY 10/09/16 Plus Tablet (*)] Ranitidine HCl 150 mg PO BID 10/09/16 fentaNYL [Duragesic 50 MCG Patch 50 mcg TD Q72H 10/09/16 (*)] traZODone [traZODONE 50MG (*)] 50 mg PO HS 10/09/16 Acetaminophen [Tylenol ES 500 mg 500 - 1,000 mg PO Q6HRS PRN #0 tab 10/12/16 (*)] amLODIPine BESYLATE [Norvasc 5 mg 5 mg PO DAILY #0 tab 10/12/16 (*)] oxyCODONE IR [Oxycodone Ir (*)] 5 - 10 mg PO Q3HRS PRN #0 tab 10/12/16 Medical Decision Making - Diagnostics Imaging Results: Imaging Impressions Cervical Spine CT 01/01/17 17:37 Impression: 1. Nothing acute. 2. Complete anterior fusion of C5-C6. 3. Degenerative cervical spine disease. Findings and recommendations discussed with CHRISTIE BENAVIDES at 1808 hour, . Final report concurs with initial preliminary interpretation. Head CT 01/01/17 17:37 Impression: Atrophy and microvascular ischemic disease. Nothing acute. Findings and recommendations discussed with CHRISTIE BENAVIDES at 1800 hour, . Final report concurs with initial preliminary interpretation. ED Course/Re-evaluation: In the emergency department I discussed possible etiologies with the patient and her son. I answered all her questions. A CT of the head and C-spine were ordered. Head CT: C-spine CT: Please refer the dictated report by the radiologist. No acute disease noted other than the hematoma. 1835: No focal deficits. I discussed the results with the patient. I answered all her questions. She is given warnings prior to leaving. Differential Diagnosis: My differential includes but is not limited to subarachnoid hemorrhage, subdural hematoma, epidural hematoma, scalp contusion, fracture, spinal injury. The patient denies any preceding symptoms. I doubt electrolyte abnormality or sugar abnormality. I do not think this was secondary to ACS or dysrhythmia. Departure - Departure Disposition: Home, Routine, Self-Care Clinical Impression: Head contusion Qualifiers: Encounter type: initial encounter Contusion of head detail: scalp Qualified Code(s): S00.03XA - Contusion of scalp, initial encounter Condition: Good Instructions: Head Injury (ED) Referrals: Jayme Sanchez MD [Primary Care Provider] - 2-3 days, if not improved
[2017-01-01 19:00] VITALS: BP 112/69; RESP 20; TEMP 98.6; O2SAT 96
== END 2017-01-01 18:58 | disposition home or self-care (01) ==
DX: S00.03XA Contusion of scalp, initial encounter (principal); I10 Essential (primary) hypertension; Z85.828 Personal history of other malignant neoplasm of skin; Z87.891 Personal history of nicotine dependence; Z79.82 Long term (current) use of aspirin; W01.198A Fall on same level from slipping, tripping and stumbling with subsequent striking against other object, initial encounter

== ENCOUNTER 2017-01-20 18:11 | Emergency (ER) | payer MEDICAID, OTHER ==
[2017-01-20 18:25] VITALS: PULSE 71; TEMP 98.1
--- NOTE | 2017-01-20 18:48 | EDPHY ---
H & P Stated Complaint: burning with urination . discharge for several days fever Time Seen by Provider: 01/20/17 18:27 HPI/ROS: CHIEF COMPLAINT: Dysuria HISTORY OF PRESENT ILLNESS: Patient is an 86-year-old female who comes to the emergency department her son complaining of dysuria, frequency and hesitancy. She states that this is very familiar for urinary tract infections. She tends to have 2-3 per year. She used to have more but the have decreased. 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 1 point she had recto cutaneous fistulas but they have resolved. She does not have any known fistula involving her bladder. She has not had a fever. She denies abdominal pain or flank pain. No vaginal bleeding or discharge. No change in her ostomy output. REVIEW OF SYSTEMS: Constitutional: denies: chills, fever, recent illness, recent injury EENTM: denies: blurred vision, double vision, nose congestion Respiratory: denies: cough, shortness of breath Cardiac: denies: chest pain, irregular heart rate, lightheadedness, palpitations Gastrointestinal/Abdominal: denies: abdominal pain, diarrhea, nausea, vomiting, blood streaked stools Genitourinary: See HPI Musculoskeletal: denies: joint pain, muscle pain Skin: denies: lesions, rash, jaundice, bruising Neurological: denies: headache, numbness, paresthesia, tingling, dizziness, weakness Hematologic/Lymphatic: denies: blood clots, easy bleeding, easy bruising Immunologic/allergic: denies: HIV/AIDS, transplant EXAM: GENERAL: Well-appearing, well-nourished and in no acute distress. HEAD: Atraumatic, normocephalic. EYES: Pupils equal round and reactive to light, extraocular movements intact, sclera anicteric, conjunctiva are normal. ENT: TMs normal, nares patent, oropharynx clear without exudates. Moist mucous membranes. NECK: Normal range of motion, supple without lymphadenopathy or JVD. LUNGS: Breath sounds clear to auscultation bilaterally and equal. No wheezes rales or rhonchi. HEART: Regular rate and rhythm without murmurs, rubs or gallops. ABDOMEN: Ostomy in place, no erythema or leakage. Soft, nontender, normoactive bowel sounds. No guarding, no rebound. No masses appreciated. BACK: No CVA tenderness, no spinal tenderness, step-offs or deformities EXTREMITIES: Normal range of motion, no pitting or edema. No clubbing or cyanosis. NEUROLOGICAL: Cranial nerves II through XII grossly intact. Normal speech, normal gait. 5/5 strength, normal movement in all extremities, normal sensation PSYCH: Normal mood, normal affect. SKIN: Warm, dry, normal turgor, no visible rashes or lesions. Source: Patient Exam Limitations: No limitations - Personal History Current Tetanus/Diphtheria Vaccine: Unsure Current Tetanus Diphtheria and Acellular Pertussis (TDAP): Unsure - Medical/Surgical History Hx Asthma: No Hx Chronic Respiratory Disease: No Hx Diabetes: No Hx Cardiac Disease: Yes Hx Renal Disease: No Hx Cirrhosis: No Hx Alcoholism: No Hx HIV/AIDS: No Hx Splenectomy or Spleen Trauma: No Other PMH: Stent, HTN, Skin cancer, Pacemaker, colectomy, Back surgery, Chronic back pain. uti's - Family History Significant Family History: No pertinent family hx - Social History Smoking Status: Former smoker Alcohol Use: Sober Drug Use: None Constitutional: Initial Vital Signs Temperature (C) 36.7 C 01/20/17 18:22 Heart Rate 71 01/20/17 18:22 Respiratory Rate 16 01/20/17 18:22 Blood Pressure 165/95 H 01/20/17 18:22 O2 Sat (%) 94 01/20/17 18:22 O2 Delivery Mode Room Air Allergies/Adverse Reactions: No Known Allergies Allergy (Verified 01/20/17 18:26) Home Medications: Medication Instructions Recorded Aspirin [Aspirin 81mg (*)] 81 mg PO DAILY 10/09/16 Atorvastatin Calcium [Lipitor 20 20 mg PO HS 10/09/16 mg (*)] Bisoprolol Fumarate [Zebeta (*)] 2.5 mg PO HS 10/09/16 Calcium Carbonate [Oyster Shell 500 mg PO DAILY 10/09/16 Calcium 500 mg (*)] Cyclobenzaprine [Flexeril 10 MG 10 mg PO HS 10/09/16 (*)] DULoxetine [Cymbalta 30 MG (*)] 30 mg PO DAILY 10/09/16 Dexlansoprazole [DEXILANT] 30 mg PO DAILYAC 10/09/16 Docusate Sodium [Colace 100 MG (*)] 100 mg PO BID 10/09/16 Folic Acid [Folic Acid 1 MG (*)] 1 mg PO DAILY 10/09/16 Herbals/Supplements -Info Only 1 ea PO DAILY 10/09/16 Multivitamins W-Minerals [Thera M 1 each PO DAILY 10/09/16 Plus Tablet (*)] Ranitidine HCl 150 mg PO BID 10/09/16 fentaNYL [Duragesic 50 MCG Patch 50 mcg TD Q72H 10/09/16 (*)] traZODone [traZODONE 50MG (*)] 50 mg PO HS 10/09/16 Acetaminophen [Tylenol ES 500 mg 500 - 1,000 mg PO Q6HRS PRN #0 tab 10/12/16 (*)] amLODIPine BESYLATE [Norvasc 5 mg 5 mg PO DAILY #0 tab 10/12/16 (*)] oxyCODONE IR [Oxycodone Ir (*)] 5 - 10 mg PO Q3HRS PRN #0 tab 10/12/16 Cephalexin [Keflex] 500 mg PO TID #21 cap 01/20/17 Phenazopyridine HCl [Pyridium] 200 mg PO TID #6 tab 01/20/17 Medical Decision Making ED Course/Re-evaluation: 7:00 p.m. we discussed the lab results. Patient is well appearing. I will start her on Keflex and Pyridium. Will culture her urine. She is happy with this and declines further workup or testing. She declines blood discussed strict return precautions. Her son agrees with this plan. Differential Diagnosis: Partial list of the Differential diagnosis considered include but were not limited to; urinary tract infection, pyelonephritis, fistula and although unlikely based on the history and physical exam, I also considered diverticulitis, appendicitis. I discussed these differential diagnoses and the plan with the patient as well as the usual and expected course. The patient understands that the diagnosis is provisional and that in medicine we are not always correct and that further workup is often warranted. Usual and customary warnings were given. All of the patient's questions were answered. The patient was instructed to return to the emergency department should the symptoms at all worsen or return, otherwise to followup with the physician as we discussed. - Data Points Laboratory Results: 01/20/17 18:40 Urine Color YELLOW Urine Appearance MODERATELY TURBID Urine pH 5.0 (5.0-7.5) Ur Specific [place] 1.025 (1.002-1.030) Urine Protein 1+ H (NEGATIVE) Urine Ketones NEGATIVE (NEGATIVE) Urine Blood NEGATIVE (NEGATIVE) Urine Nitrate NEGATIVE (NEGATIVE) Urine Bilirubin NEGATIVE (NEGATIVE) Urine Urobilinogen NEGATIVE EU EU (0.2-1.0) Ur Leukocyte Esterase 3+ H (NEGATIVE) Urine RBC 10-15 /hpf H /hpf (0-3) Urine WBC 50-182 /hpf H /hpf (0-3) Ur Epithelial Cells TRACE /lpf /lpf (NONE-1+) Urine Bacteria 4+ /hpf H /hpf (NONE SEEN) Hyaline Casts 15-25 /lpf H /lpf (0-1) Urine Mucus TRACE /lpf /lpf (NONE-1+) Urine Yeast PRESENT /hpf /hpf (NONE SEEN) Urine Glucose NEGATIVE (NEGATIVE) Medications Given: Discontinued Medications Cephalexin HCl (Keflex) 500 mg PO EDNOW ONE PRN Reason: Protocol Stop: 01/20/17 19:05 Last Admin: 01/20/17 19:12 Dose: 500 mg Phenazopyridine HCl (Pyridium) 200 mg PO EDNOW ONE Stop: 01/20/17 19:05 Last Admin: 01/20/17 19:12 Dose: 200 mg Departure - Departure Disposition: Home, Routine, Self-Care Clinical Impression: Urinary tract infection Qualifiers: Urinary tract infection type: acute cystitis Hematuria presence: without hematuria Qualified Code(s): N30.00 - Acute cystitis without hematuria Condition: Fair Instructions: Urinary Tract Infection in Women (ED) Referrals: JULIA AVILES [Other] - As per Instructions Prescriptions: Cephalexin [Keflex] 500 mg PO TID #21 cap Phenazopyridine HCl [Pyridium] 200 mg PO TID #6 tab
[2017-01-20 18:58] LABS: COLOR YELLOW; LEUKOCYTE ESTERASE,URINE 3+ (NEGATIVE); NITRITE,URINE NEGATIVE (NEGATIVE)
[2017-01-20 19:03] LABS: BACTERIA 4+ /hpf (NONE SEEN); HYALINE CASTS 15-25 /lpf (0-1); MUCUS TRACE /lpf (NONE-1+); WBC,URINE 50-182 /hpf (0-3); YEAST PRESENT /hpf (NONE SEEN)
[2017-01-20] MEDS ORDERED: CEPHALEXIN 500 MG CAP PO ONE (19:04)
[2017-01-20] MEDS ORDERED: PHENAZOPYRIDINE HCL 200 MG TAB PO ONE (19:04)
[2017-01-20 19:51] VITALS: BP 156/98; RESP 18; O2SAT 95
== END 2017-01-20 19:51 | disposition home or self-care (01) ==
DX: N30.00 Acute cystitis without hematuria (principal); B96.89 Other specified bacterial agents as the cause of diseases classified elsewhere; I10 Essential (primary) hypertension; Z79.82 Long term (current) use of aspirin; Z85.828 Personal history of other malignant neoplasm of skin; Z87.891 Personal history of nicotine dependence; Z95.0 Presence of cardiac pacemaker